=== PATIENT | female | born 1995 | race Caucasian/White ===

== ENCOUNTER 2023-06-26 15:10 | Emergency (ER) | payer MEDICAID, OTHER ==
[~2023-06-26] VITALS: Ht 172.7 cm; Wt 50.0 kg
[2023-06-26 15:16] VITALS: O2SAT 99
[2023-06-26] MEDS: LORAZEPAM 0.5MG TABLET PO ONE (15:30)
[2023-06-26] MEDS: ACETAMINOPHEN 325MG TABLET PO ONE (15:30)
[2023-06-26 18:49] LABS: BASOPHILS % 0.5 % (0.0-2.0); EOSINOPHILS % 0.2 % (0.0-5.0); HEMATOCRIT. 25.4 % (36.0-48.0); HEMOGLOBIN. 7.9 g/dL (12.0-16.0); LYMPHOCYTES % 11.4 % (20.0-50.0); MEAN CORPUSCULAR HEMOGLOBIN 21.1 pg (28.0-32.0); MEAN PLATELET VOLUME 7.8 fl (7.4-10.4); MONOCYTES % 6.1 % (2.0-8.0); NEUTROPHILS % 81.8 % (40.0-76.0); PLATELET 416 x1000/uL (130-400); RED BLOOD CELL COUNT 3.73 mill/uL (4.2-5.4); RED CELL DISTRIBUTION WIDTH 18.2 % (11.6-14.6); WHITE BLOOD COUNT 7.4 x1000/uL (4.5-11.0)
[2023-06-26 19:00] LABS: DIFFERENTIAL COMMENT 1
[2023-06-26 19:01] LABS: ADD RBC MORPHOLOGY YES
[2023-06-26 19:02] LABS: ALANINE AMINOTRANSFERASE 8 IU/L (10-49); ALBUMIN 4.2 g/dL (3.2-4.8); ASPARTATE AMINOTRANSFERASE 21 IU/L (<34); BILIRUBIN TOTAL 0.3 mg/dL (0.1-1.0); CALCIUM 8.5 mg/dL (8.7-10.4); CARBON DIOXIDE 23 mEq/L (21-32); CHLORIDE 106 mEq/L (98-107); CREATININE 0.7 mg/dL (0.6-1.0); GLUCOSE 92 mg/dL (70-105); PROTEIN TOTAL 7.4 g/dL (6.0-8.3); SODIUM 137 mEq/L (136-145); UREA NITROGEN BLOOD 7 mg/dL (9-23)
[2023-06-26 19:03] LABS: ETHANOL BLOOD < 10 mg/dL (<10)
[2023-06-26 19:06] LABS: HCG SCREEN NEGATIVE
[2023-06-26 19:33] VITALS: BP 102/70; PULSE 98; RESP 17; TEMP 97.9
[2023-06-26 19:39] LABS: HYPOCHROMASIA 1+; MICROCYTOSIS 1+; PLATELET ESTIMATE NORMAL
== END 2023-06-26 20:33 | disposition home or self-care (01) ==
LOC: EDBD 15:10 → ER 15:10
DX: F12.129 Cannabis abuse with intoxication, unspecified (principal)
CPT/HCPCS: 80053; 80320; 84703; 85025; 36415; 93005; 99284; Z7610; G0480